=== PATIENT | male | born 1990 | race Caucasian/White ===

== ENCOUNTER 2024-07-06 21:59 | Emergency (ER) | payer OTHER ==
[~2024-07-06] VITALS: Ht 185.4 cm; Wt 95.3 kg
[2024-07-06] MEDS ORDERED: ONDANSETRON HCL/PF 4 MG/2 ML VIAL ONE (22:27)
[2024-07-06] MEDS ORDERED: MORPHINE SULFATE INJ 4 MG/ML DISP.SYRIN ONE (22:28)
[2024-07-06] MEDS: IV NS 0.9% 1,000 ML BAG IV ONE (22:38)
[2024-07-06] MEDS: ONDANSETRON HCL/PF 4 MG/2 ML VIAL IVP ONE (22:39)
[2024-07-06] MEDS: MORPHINE SULFATE INJ 2 MG/ML DISP.SYRIN IV ONE (22:39)
[2024-07-06 23:03] LABS: BASOPHILS % (AUTO) 0.2 % (0.0-2.0); EOSINOPHILS # (AUTO) 0.9 K/uL (0.0-0.7); EOSINOPHILS % (AUTO) 8.9 % (0.0-6.0); HEMATOCRIT 48 % (39-51); HEMOGLOBIN 16.6 g/dL (13.5-17.5); LYMPHOCYTES % (AUTO) 38.7 % (20.0-44.0); MEAN CORPUSCULAR HEMOGLOBIN 31 PG (26.0-33.0); MEAN CORPUSCULAR HGB CONC 34 g/dl (31.0-36.0); MEAN CORPUSCULAR VOLUME 89 fL (80-96); MONOCYTES # (AUTO) 0.5 K/uL (0.1-1.30); MONOCYTES % (AUTO) 4.9 % (2.0-12.0); NEUTROPHILS # (AUTO) 4.8 K/uL (1.8-8.9); NEUTROPHILS % (AUTO) 47.3 % (43.0-81.0); PLATELET COUNT (AUTO) 275 K/uL (150-450); RED BLOOD CELL COUNT(AUTO) 5.41 MIL/uL (4.5-6.0); WHITE BLOOD COUNT (AUTO) 10.2 K/uL (4.3-11.0)
[2024-07-06 23:10] LABS: CALCIUM, SERUM 9.3 mg/dL (8.5-10.1); CREATININE 1.2 mg/dL (0.6-1.3); POTASSIUM 3.9 mmol/L (3.5-5.1)
[2024-07-06 23:16] LABS: BILIRUBIN,DIRECT 0.1 mg/dL (0.0-0.2); BILIRUBIN,TOTAL 0.4 mg/dL (0.2-1.0); TOTAL PROTEIN, SERUM 7.1 g/dL (6.4-8.2)
[2024-07-06 23:23] LABS: INR 1.08 (0.91-1.10); PARTIAL THROMBOPLASTIN TIME 27.5 SEC (24.3-34.3); PROTHROMBIN TIME 11.4 SECS (9.2-11.1)
[2024-07-07] MEDS ORDERED: ONDA4TAB5 PO (00:25)
[2024-07-07 00:31] LABS: APPEARANCE,URINE CLEAR (CLEAR); BILIRUBIN,URINE NEGATIVE (NEGATIVE); BLOOD, URINE NEGATIVE Ery/uL (NEGATIVE); COLOR,URINE YELLOW (YELLOW); KETONES,URINE NEGATIVE (NEGATIVE); LEUKOCYTE ESTERASE ,URINE NEGATIVE (NEGATIVE); NITRITE, URINE NEGATIVE (NEGATIVE); PROTEIN,URINE NEGATIVE (NEGATIVE); UGLUCOSE NEGATIVE (NEGATIVE); UROBILINOGEN,URINE 0.2 EU/dL (0.2)
[2024-07-07 00:45] VITALS: BP 122/66; TEMP 98.7; O2SAT 98
[2024-07-07] MEDS ORDERED: DICY10CA37 PO (00:47)
== END 2024-07-07 01:10 | disposition home or self-care (01) ==
LOC: ER 22:05
DX: K52.9 Noninfective gastroenteritis and colitis, unspecified (principal); R11.0 Nausea
CPT/HCPCS: 99285; 74176; 96374; 96361; 96375; 85025; 80048; 83690; 80076; 81003; 36415; 85730; J2270; J2405; J7030